=== PATIENT | female | born 1965 | race Caucasian/White ===

== ENCOUNTER 2023-05-04 08:28 | Emergency (ER) | payer OTHER ==
[~2023-05-04] VITALS: Ht 162.6 cm; Wt 95.3 kg
[2023-05-04] MEDS ORDERED: ESCITALOPRA5 MG/5 ML (08:44)
[2023-05-04] MEDS ORDERED: LAMOTRIGINE25 MG PO (08:45)
== END 2023-05-04 10:03 | disposition home or self-care (01) ==
LOC: ER 08:28
DX: H10.89 Other conjunctivitis (principal)